=== PATIENT | male | born 1990 | race Caucasian/White ===

== ENCOUNTER 2019-10-12 09:17 | Emergency (ER) | payer OTHER ==
[~2019-10-12] VITALS: Ht 188 cm; Wt 105.7 kg
[2019-10-12] MEDS ORDERED: HYDROcodone-ACET 10/325MG TAB PO ONE (11:15)
[2019-10-12 12:00] VITALS: BP 125/76
== END 2019-10-12 12:13 | disposition home or self-care (01) ==
LOC: ER 09:17
DX: S16.1XXA Strain of muscle, fascia and tendon at neck level, initial encounter (principal); R51 Headache; V49.9XXA Car occupant (driver) (passenger) injured in unspecified traffic accident, initial encounter; Y93.89 Activity, other specified; Y92.89 Other specified places as the place of occurrence of the external cause; Y99.8 Other external cause status
CPT/HCPCS: 70450; 71250; 72125